=== PATIENT | male | born 1960 | race Caucasian/White ===

== ENCOUNTER 2023-07-13 14:52 | Outpatient (CLI) | payer MEDICARE, SELFPAY ==
[2023-07-17 12:08] LABS: PSA, Ultrasensitive 0.31 ng/mL (<= 4.5)
== END 2023-07-13 14:53 | disposition home or self-care (01) ==
LOC: LBO 14:52
PROVIDERS: PCP Radiology Radiation Oncology; Visit Provider Colon & Rectal Surgery
DX: C61 Malignant neoplasm of prostate (principal)
CPT/HCPCS: 36415; 84153